=== PATIENT | male | born 1995 | race Hispanic/Latino ===

== ENCOUNTER 2017-06-26 11:20 | Outpatient (CLI) | payer MEDICAID ==
--- NOTE | 2017-06-26 13:09 | Ultrasound Report ---
ULTRASOUND PELVIS LIMITED INDICATION: Inguinal pain. Pelvic and perineal pain. Patient felt right groin pop/pain while at soccer practice. COMPARISON: None similar at this institution. FINDINGS: Longitudinal and transverse grayscale and color-flow sonographic evaluation of the area of concern at the right groin demonstrates no abnormal fluid collections or suspicious masses. Patent vessels. A superficial 2.5 x 0.4 cm elongated lymph node incidentally seen, image 3. CONCLUSION: No acute right groin sonographic abnormality, as described. Thank you for the opportunity to participate in this patient's care.
--- NOTE | 2017-06-26 13:10 | XRay Report ---
LEFT ANKLE RADIOGRAPHS INDICATION: Ankle pain, soccer injury. COMPARISON: None similar. FINDINGS: AP, lateral and oblique left ankle radiographs demonstrate intact mortise, malleoli and talar dome contour. Normal soft tissues. CONCLUSION: No acute radiographic abnormality. Thank you for the opportunity to participate in this patient's care.
== END 2017-06-26 11:21 | disposition home or self-care (01) ==
LOC: XRAY 11:20
PROVIDERS: ATTEND Family Medicine
DX: M25.572 Pain in left ankle and joints of left foot (principal); R10.2 Pelvic and perineal pain
CPT/HCPCS: 76857